=== PATIENT | female | born 1990 | race Caucasian/White ===

== ENCOUNTER 2016-09-01 18:35 | Emergency (ER) | payer BC, MEDICAID ==
[~2016-09-01] VITALS: Ht 160 cm; Wt 50.8 kg
[2016-09-01 18:37] VITALS: BP 99/58; PULSE 68; RESP 16; TEMP 98.4; O2SAT 98
--- NOTE | 2016-09-01 18:40 | NUR ---
Patient to ER bed 6 to gown for evaluation. Side rails up. Report given to Karla WALTERS.
--- NOTE | 2016-09-01 18:47 | NUR ---
ER MD Smiley at bedside evaluating the patient
--- NOTE | 2016-09-01 18:54 | NUR ---
Patient in stable condition. Patient states she has had a migraine x 6 days. Throbbing pain from back of neck radiating to right side of forehead. Pain 8/10 Patient complains of Nausea and light sensitivity, denies any vomiting or diarrhea. No complaints or injuries per patient or noted.
[2016-09-01] MEDS ORDERED: MORPHINE 4 MG/ML INJ. SYRINGE IM ONE (19:00)
[2016-09-01] MEDS ORDERED: ONDANSETRON HCL 4 MG/2 ML VIAL IM ONE (19:00)
[2016-09-01] MEDS ORDERED: DIPHENHYDRAMINE INJ 50 MG/ML VIAL IM ONE (19:00)
[2016-09-01 19:35] LABS: BILIRUBIN,URINE NEGATIVE (NEGATIVE); BLOOD, URINE NEGATIVE (NEGATIVE); CLARITY/URINE SL HAZY (CLEAR); COLOR,URINE YELLOW (YELLOW); GLUCOSE,URINE NEGATIVE (NEGATIVE); KETONES,URINE NEGATIVE (NEGATIVE); LEUKOCYTE ESTERASE ,URINE 1+ (NEGATIVE); NITRITE, URINE NEGATIVE (NEGATIVE); PH,URINE 7.5 (5.0-8.0); PROTEIN URINE NEGATIVE (NEGATIVE); UROBILINOGEN,URINE 0.2 (0.2-1.0)
--- NOTE | 2016-09-01 19:57 | NUR ---
Patient states that pain improved but still 11/01. ER MD Perez aware.
[2016-09-01] MEDS ORDERED: KETOROLAC TROMETHAMINE 60 MG/2 ML VIAL IM ONE (20:15)
[2016-09-01 20:38] LABS: BACTERIA,URINE MODERATE /HPF (None Seen); RBC,URINE 0-3 /HPF (0-3)
[2016-09-01 20:40] LABS: MUCUS,URINE 1+ /LPF (None Seen)
--- NOTE | 2016-09-01 20:48 | NUR ---
Attempted discharge. Patient states that pain is back 10/10. Patient states that usualy she gets an IV but this time her meds were IM which did not have effect on her. Patient and mother are requesting IV and medication through IV. ER MD Perez aware.
[2016-09-01] MEDS ORDERED: NS 500 ML IV ONE (21:00)
[2016-09-01] MEDS ORDERED: ONDANSETRON HCL 4 MG/2 ML VIAL IVP ONE (21:00)
[2016-09-01] MEDS ORDERED: fentaNYL CITRATE/PF 100 MCG/2 ML AMP IVP ONE (21:00)
--- NOTE | 2016-09-01 21:02 | NUR ---
# 20 gauge angiocath placed to left ac. Use of asceptic technique. Opsite placed over site. Blood return noted. Flushed with 10 cc of normal saline. No evidence of infiltration noted. Patient tolerated well.
[2016-09-01 22:17] VITALS: BP 114/68; PULSE 73; RESP 16; TEMP 98.3; O2SAT 98
--- NOTE | 2016-09-01 22:17 | NUR ---
Patient given written and verbal discharge instructions and verbalizes understanding. ER MD Perez discussed with patient the results and treatment provided. Patient in stable condition. ID arm band removed. IV catheter removed intact and dressing applied, no active bleeding. Patient educated on pain management and to follow up with PMD. Pain Scale 0/10. Opportunity for questions provided and answered.
== END 2016-09-01 22:17 | disposition home or self-care (01) ==
LOC: SED 18:35
DX: R51 Headache (principal); G43.909 Migraine, unspecified, not intractable, without status migrainosus; Z88.0 Allergy status to penicillin; Z88.1 Allergy status to other antibiotic agents; Z88.8 Allergy status to other drugs, medicaments and biological substances
CPT/HCPCS: 81000; 81025; 87086; 96361; 96372; 96374; 96375; 99284; J1200; J1885; J2270; J2405; J3010; J7040

== ENCOUNTER 2016-10-11 12:35 | Emergency (ER) | payer BC, MEDICAID ==
[~2016-10-11] VITALS: Ht 160 cm; Wt 51.7 kg
--- NOTE | 2016-10-11 12:40 | NUR ---
ER at bedside examining patient.
[2016-10-11 12:43] VITALS: BP 111/67; PULSE 90; RESP 20; TEMP 97.8; O2SAT 99
[2016-10-11] MEDS ORDERED: PROCHLORPERAZINE EDISYLATE 10 MG/2 ML VIAL IVP ONE (12:45)
[2016-10-11] MEDS ORDERED: DIPHENHYDRAMINE INJ 50 MG/ML VIAL IVP ONE (12:45)
[2016-10-11] MEDS ORDERED: KETOROLAC TROMETHAMINE 30 MG VIAL IVP ONE (12:45)
[2016-10-11] MEDS ORDERED: NACL 0.9% 1,000 ML IV ONE (12:45)
[2016-10-11] MEDS ORDERED: DEXAMETHASONE SOD PHOSPHATE 10 MG/ML VIAL IVP ONE (12:45)
--- NOTE | 2016-10-11 12:48 | NUR ---
Pt placed to ER bed 06, report given to ROMEO Boyd.
--- NOTE | 2016-10-11 13:00 | NUR ---
PATIENT TO ER BED 6.PER PATIENT SHE STARTED HAVING MIGRAINE UNTIL THIS MORNING;TOOK MEDICINE BUT WAS NOT RELIEVED STATED "I CAME HERE BECAUSE MY MIGRAINE IS GETTING WORSE AND I FEEL NAUSEATED".NO OTHER COMPLAIN/INJURIES PER PATIENT OR NOTED
[2016-10-11 14:15] VITALS: BP 126/74; PULSE 88; RESP 20; TEMP 97.6; O2SAT 100
--- NOTE | 2016-10-11 14:15 | NUR ---
Patient given written and verbal discharge instructions and verbalizes understanding. ER MD discussed with patient the results and treatment provided. Patient in stable condition. ID arm band removed. Patient educated on pain management and to follow up with PMD. Pain Scale 0/10. Opportunity for questions provided and answered.
== END 2016-10-11 14:15 | disposition home or self-care (01) ==
LOC: SED 12:35
DX: G43.909 Migraine, unspecified, not intractable, without status migrainosus (principal); Z88.0 Allergy status to penicillin; Z88.1 Allergy status to other antibiotic agents; Z88.8 Allergy status to other drugs, medicaments and biological substances
CPT/HCPCS: 96361; 96374; 96375; 99284; J0780; J1100; J1200; J1885; J7030

== ENCOUNTER 2017-08-03 20:12 | Emergency (ER) | payer BC, MEDICAID ==
[~2017-08-03] VITALS: Ht 160 cm; Wt 48.5 kg
[2017-08-03 20:18] VITALS: BP_SYST 113
[2017-08-03] MEDS ORDERED: DIPHENHYDRAMINE INJ 50 MG/ML VIAL IVP ONE (22:45)
[2017-08-03] MEDS ORDERED: PROCHLORPERAZINE EDISYLATE 10 MG/2 ML VIAL IVP ONE (22:45)
[2017-08-04 00:03] VITALS: BP_SYST 109
== END 2017-08-04 00:03 | disposition home or self-care (01) ==
LOC: SED 20:12
DX: O26.891 Other specified pregnancy related conditions, first trimester (principal); G43.909 Migraine, unspecified, not intractable, without status migrainosus; Z88.8 Allergy status to other drugs, medicaments and biological substances; Z3A.10 10 weeks gestation of pregnancy
CPT/HCPCS: 81025; 96374; 96375; 99284; J0780; J1200

== ENCOUNTER 2017-08-09 19:26 | Emergency (ER) | payer BC, MEDICAID ==
[~2017-08-09] VITALS: Ht 160 cm; Wt 48.5 kg
[2017-08-09 19:34] VITALS: BP_SYST 110
[2017-08-09] MEDS: NACL 0.9% 1,000 ML IV ONE (20:09)
[2017-08-09] MEDS: DIPHENHYDRAMINE INJ 50 MG/ML VIAL IVP ONE (20:25)
[2017-08-09] MEDS: PROCHLORPERAZINE EDISYLATE 10 MG/2 ML VIAL IVP ONE (20:26)
[2017-08-09] MEDS: ONDANSETRON HCL 4 MG/2 ML VIAL IVP ONE (20:26)
[2017-08-09] MEDS: LORazepam 2 MG/ML VIAL (FOR ER USE) IVP ONE (20:58)
[2017-08-09 21:35] VITALS: BP_SYST 112
== END 2017-08-09 21:35 | disposition home or self-care (01) ==
LOC: SED 19:26
DX: O21.0 Mild hyperemesis gravidarum (principal); G43.909 Migraine, unspecified, not intractable, without status migrainosus; Z3A.11 11 weeks gestation of pregnancy; Z88.8 Allergy status to other drugs, medicaments and biological substances
CPT/HCPCS: 96361; 96374; 96375; 99284; J0780; J1200; J2060; J2405; J7030